=== PATIENT | male | born 1970 | race Two or more races ===

== ENCOUNTER 2020-06-15 18:48 | Emergency (ER) | payer OTHER ==
[~2020-06-15] VITALS: Ht 190.5 cm; Wt 170.1 kg
[2020-06-15 18:56] VITALS: BP 145/82
== END 2020-06-16 08:59 | disposition left against medical advice (07) ==
LOC: ER 18:50
DX: N50.811 Right testicular pain (principal); Z53.21 Procedure and treatment not carried out due to patient leaving prior to being seen by health care provider